=== PATIENT | male | born 1955 | race Caucasian/White ===

== ENCOUNTER 2020-01-12 03:10 | Emergency (ER) | payer OTHER ==
[~2020-01-12] VITALS: Ht 177.8 cm; Wt 93.0 kg
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
[2020-01-12] MEDS ORDERED: HYDROCODONE/APAP 5/325MG TABLET PO ONE (04:30)
[2020-01-12] MEDS ORDERED: HYDROCODONE/APAP 5/325MG TABLET ONE (04:34)
--- NOTE | 2020-01-12 04:41 | NUR ---
Dr Tai paged per Dr Herzog
--- NOTE | 2020-01-12 04:59 | NUR ---
SPOKE TO PT AND REGARDING CALLING THEIR INSURANCE TO FIND A PLASTIC SURGEON FOR PT'S RIGHT EAR.
--- NOTE | 2020-01-12 05:05 | NUR ---
Dr Klein paged per Dr Herzog
[2020-01-12] MEDS ORDERED: LEVOFLOXACIN (500MG) 500 MG TABLET ONE (05:27)
[2020-01-12] MEDS ORDERED: LEVOFLOXACIN (250MG) 250 MG TABLET PO ONE (05:30)
--- NOTE | 2020-01-12 05:53 | NUR ---
Patient discharged to home in stable condition. Written and verbal after care instructions given. Patient verbalizes understanding of instruction and RX. Pt ambulated with steady gait. vss.
[2020-01-12 05:54] VITALS: BP 138/81
== END 2020-01-12 05:55 | disposition home or self-care (01) ==
LOC: ER 03:12
DX: S01.311A Laceration without foreign body of right ear, initial encounter (principal); S09.8XXA Other specified injuries of head, initial encounter; Z98.890 Other specified postprocedural states; W01.198A Fall on same level from slipping, tripping and stumbling with subsequent striking against other object, initial encounter; Y93.89 Activity, other specified; Y92.89 Other specified places as the place of occurrence of the external cause; Y99.8 Other external cause status
CPT/HCPCS: 70450-TC